=== PATIENT | male | born 1965 | race Caucasian/White ===

== ENCOUNTER 2018-03-02 10:25 | Day surgery (SDC) | payer MEDICAID ==
[~2018-03-02] VITALS: Ht 172.7 cm; Wt 55.6 kg
[2018-03-02] VITALS (12 sets, daily range): BP systolic 109–144; BP diastolic 64–88
[~2018-03-02 10:25] MED LIST: CHOL500049 PO; ESOM20CA PO; GABA-532 PO; LORA2TAB96 PO; MORP-64 PO; OXYC-145 PO
[2018-03-02] MEDS ORDERED: diphenhydrAMINE 25mg capsule PO PRN (10:55)
[2018-03-02] MEDS ORDERED: normal saline 1000ml 1,000 ML IV SCH (10:55)
[2018-03-02] MEDS ORDERED: LORazepam 0.5 MG tablet PO PRN (10:55)
[2018-03-02] MEDS ORDERED: nitroGLYCERIN 0.4mg SUBLingual tab SL PRN (10:55)
[2018-03-02] MEDS ORDERED: TEMA15CA5 PO (11:35)
[2018-03-02] MEDS ORDERED: TEMA22.5 PO (11:35)
[2018-03-02] MEDS ORDERED: LIDOcaine 1% (10mg/ml)w/preservative injection 20ml MDV ONE (12:56)
[2018-03-02] MEDS ORDERED: fentaNYL/PF 50MCG/1 ML 2ML syringe ONE ×2 (12:56→13:42)
[2018-03-02] MEDS ORDERED: midazolam 2 mg/2 ml injection ONE ×2 (12:56→13:35)
[2018-03-02] MEDS ORDERED: iohexol 350MG/ML 100ml bottle IV ONE (12:57)
[2018-03-02] MEDS ORDERED: iohexol 350 MG/ML 50ML vial IV ONE (12:57)
[2018-03-02] MEDS ORDERED: HYDROcodone/acetaminophen 10/325mg tab PO PRN (14:45)
[2018-03-02] MEDS ORDERED: ondansetron/PF 4mg/2ml inj IV PRN (14:45)
[2018-03-02] MEDS ORDERED: OXAZEpam 15mg capsule PO PRN (14:45)
[2018-03-02] MEDS ORDERED: HYDROcodone/acetaminophen 5mg/325mg tablet PO PRN (14:45)
[2018-03-02] MEDS ORDERED: proCHLORperazine 10 MG/2 ml inj IV PRN (14:45)
== END 2018-03-02 20:20 | disposition home or self-care (01) ==
LOC: SSTAY O 10:25
PROVIDERS: ATTEND Internal Medicine Cardiovascular Disease
DX: I25.110 Atherosclerotic heart disease of native coronary artery with unstable angina pectoris (principal); E78.5 Hyperlipidemia, unspecified; J45.909 Unspecified asthma, uncomplicated; K21.9 Gastro-esophageal reflux disease without esophagitis
CPT/HCPCS: 93005; 93458; 99152; A6257; J1644; J2001; J2250; J3010; J7030; Q0163; Q9967; A4620; C1760; C1769